=== PATIENT | female | born 1965 | race Caucasian/White ===

== ENCOUNTER → 2017-10-15 16:50 | Outpatient (CLI) | payer MEDICAID ==
[2017-10-17 14:27] LABS: CYTOMEGALOVIRUS AB IGG >10.00 U/mL (0.00-0.59)
[2017-10-22 12:16] LABS: F. TULARENSIS - IGG Negative (()); F. TULARENSIS - IGM Negative (())
== END | disposition home or self-care (01) ==
LOC: D.LABREF 16:50
PROVIDERS: Family Medicine
DX: R61 Generalized hyperhidrosis (principal)

== ENCOUNTER → 2017-10-21 09:32 | Outpatient (CLI) | payer MEDICAID ==
[2017-10-30 09:46] LABS: OVA + PARASITE EXAM Final report (())
[2017-11-04 07:08] LABS: OVA + PARASITE EXAM Final report (())
[2017-11-04 14:18] LABS: OVA + PARASITE EXAM Final report (())
== END | disposition home or self-care (01) ==
LOC: D.LABREF 09:32
PROVIDERS: Student in an Organized Health Care Education/Training Program
DX: R51 Headache (principal)